=== PATIENT | female | born 1945 | race Caucasian/White ===

== ENCOUNTER 2018-01-20 03:34 | Emergency (ER) | payer MEDICARE ==
[~2018-01-20] VITALS: Ht 167.6 cm; Wt 68.0 kg
[2018-01-20] MEDS ORDERED: etomidate 2mg/ml inj. IV ONE (04:05)
[2018-01-20] MEDS ORDERED: fentaNYL/PF 50MCG/1 ML 2ML syringe IV ONE (04:05)
[2018-01-20] MEDS ORDERED: heparin 10,000 units/1 ML INJ IV ONE (04:05)
[2018-01-20] MEDS ORDERED: ondansetron/PF 4mg/2ml inj IV ONE (04:05)
[2018-01-20 04:07] LABS: BASOPHILS % (AUTO) 0.5 % (0-1); EOSINOPHILS # (AUTO) 0.3 X10'3 (0-0.9); EOSINOPHILS % (AUTO) 6.4 % (0-6); HEMATOCRIT 35.5 % (35.0-45.0); HEMOGLOBIN 11.8 g/dl (12.0-16.0); LYMPHOCYTES # (AUTO) 1.2 X10'3 (1.1-4.8); LYMPHOCYTES % (AUTO) 21.9 % (21-51); MEAN CORPUSCULAR HEMOGLOBIN 27.3 PG (27.0-31.0); MEAN CORPUSCULAR HGB CONC 33.1 % (33.0-36.5); MEAN CORPUSCULAR VOLUME 82.3 FL (78-98); MEAN PLATELET VOLUME 8.3 FL (7.4-10.4); MONOCYTES # (AUTO) 0.5 X10'3 (0-0.9); MONOCYTES % (AUTO) 10.1 % (2-12); NEUTROPHILS # (AUTO) 3.3 X10'3 (1.8-7.7); NEUTROPHILS % (AUTO) 61.1 % (42-75); PLATELET COUNT 194 X10'3 (140-440); RED BLOOD COUNT 4.31 X10'6 (4.20-5.60); RED CELL DISTRIBUTION WIDTH 15.4 % (11.5-14.5); WHITE BLOOD COUNT 5.3 X10'3 (4.5-11.0)
[2018-01-20] MEDS ORDERED: fentaNYL/PF 50MCG/1 ML 2ML syringe ONE (04:16)
[2018-01-20] MEDS ORDERED: APIX5TAB3 PO (04:21)
[2018-01-20] MEDS ORDERED: SOTA80TA PO (04:21)
[2018-01-20 04:24] LABS: ALANINE AMINOTRANSFERASE 25 U/L (12-78); ALBUMIN 3.2 G/DL (3.4-5.0); ALBUMIN/GLOBULIN RATIO 0.8 (1.1-1.5); ALKALINE PHOSPHATASE 54 IU/L (46-116); ANION GAP 11 (8-16); ASPARTATE AMINO TRANSFERASE 19 U/L (10-37); BILIRUBIN,TOTAL 0.4 MG/DL (0.1-1.0); BLOOD UREA NITROGEN 25 MG/DL (7-18); BUN/CREATININE RATIO 21.4 (6.6-38.0); CALCIUM 8.3 MG/DL (8.5-10.1); CHLORIDE 106 MMOL/L (99-107); CREATININE 1.17 MG/DL (0.40-0.90); GLUCOSE 169 MG/DL (70-104); POTASSIUM 3.5 MMOL/L (3.5-5.1); SODIUM 140 MMOL/L (135-145); TOTAL PROTEIN 7.1 G/DL (6.4-8.2); eGFR 45 ML/MIN
[2018-01-20 04:28] LABS: D-DIMER 0.22 MG/L FEU (0-0.50)
[2018-01-20 05:18] VITALS: BP 166/98
== END 2018-01-20 05:37 | disposition home or self-care (01) ==
LOC: ER 03:34
DX: I48.91 Unspecified atrial fibrillation (principal); I10 Essential (primary) hypertension; I25.10 Atherosclerotic heart disease of native coronary artery without angina pectoris; E11.65 Type 2 diabetes mellitus with hyperglycemia; I25.2 Old myocardial infarction; Z98.61 Coronary angioplasty status
CPT/HCPCS: 36415; 71045; 80053; 84439; 84443; 84484; 85025; 85379; 92960; 93005; 96374; 96375; 99291; J1644; J2405; J3010; J3490; A4620

== ENCOUNTER 2018-05-27 19:26 | Emergency (ER) | payer MEDICARE ==
[~2018-05-27] VITALS: Ht 167.6 cm; Wt 70.0 kg
[2018-05-27 19:57] LABS: BASOPHILS % (AUTO) 0.9 % (0-1); EOSINOPHILS # (AUTO) 0.2 X10'3 (0-0.9); EOSINOPHILS % (AUTO) 3.4 % (0-6); HEMATOCRIT 35.5 % (35.0-45.0); HEMOGLOBIN 11.6 g/dl (12.0-16.0); LYMPHOCYTES # (AUTO) 0.9 X10'3 (1.1-4.8); LYMPHOCYTES % (AUTO) 19.1 % (21-51); MEAN CORPUSCULAR HEMOGLOBIN 28.3 PG (27.0-31.0); MEAN CORPUSCULAR HGB CONC 32.9 % (33.0-36.5); MONOCYTES # (AUTO) 0.5 X10'3 (0-0.9); MONOCYTES % (AUTO) 10.9 % (2-12); NEUTROPHILS # (AUTO) 3.2 X10'3 (1.8-7.7); NEUTROPHILS % (AUTO) 65.7 % (42-75); PLATELET COUNT 185 X10'3 (140-440); RED BLOOD COUNT 4.12 X10'6 (4.20-5.60); RED CELL DISTRIBUTION WIDTH 14.7 % (11.5-14.5); WHITE BLOOD COUNT 4.9 X10'3 (4.5-11.0)
[2018-05-27 20:12] LABS: ALANINE AMINOTRANSFERASE 25 U/L (12-78); ALBUMIN 3.3 G/DL (3.4-5.0); ALBUMIN/GLOBULIN RATIO 0.9 (1.1-1.5); ALKALINE PHOSPHATASE 59 IU/L (46-116); ANION GAP 11 (8-16); ASPARTATE AMINO TRANSFERASE 18 U/L (10-37); BILIRUBIN,TOTAL 0.3 MG/DL (0.1-1.0); BLOOD UREA NITROGEN 27 MG/DL (7-18); CALCIUM 8.1 MG/DL (8.5-10.1); CHLORIDE 105 MMOL/L (99-107); CREATININE 1.42 MG/DL (0.40-0.90); GLUCOSE 154 MG/DL (70-104); POTASSIUM 3.8 MMOL/L (3.5-5.1); SODIUM 142 MMOL/L (135-145); TOTAL CARBON DIOXIDE 26.5 MMOL/L (24-32); eGFR 36 ML/MIN
[2018-05-27 20:21] LABS: MAGNESIUM 1.9 MG/DL (1.5-2.4)
[2018-05-27 20:33] LABS: D-DIMER 0.21 MG/L FEU (0-0.50); INR 2.1 INR; PROTHROMBIN TIME 20.1 SECONDS (9.0-12.0)
[2018-05-27 21:28] VITALS: BP 143/69
== END 2018-05-27 21:25 | disposition home or self-care (01) ==
LOC: ER 19:27
DX: R07.89 Other chest pain (principal); R10.13 Epigastric pain; M25.511 Pain in right shoulder; R10.10 Upper abdominal pain, unspecified; I48.91 Unspecified atrial fibrillation; I25.10 Atherosclerotic heart disease of native coronary artery without angina pectoris; I10 Essential (primary) hypertension; I25.2 Old myocardial infarction; E11.9 Type 2 diabetes mellitus without complications; Z86.718 Personal history of other venous thrombosis and embolism; Z95.5 Presence of coronary angioplasty implant and graft; Z98.890 Other specified postprocedural states
CPT/HCPCS: 36415; 71045; 80053; 83735; 83880; 84484; 85025; 85379; 85610; 93005; 99284

== ENCOUNTER 2023-02-28 12:58 | Day surgery (SDC) | payer MEDICARE, OTHER ==
[2023-02-26 16:10] LABS: BASOPHILS # (AUTO) 0.1 X10'3 (0-0.2); BASOPHILS % (AUTO) 1.1 % (0-1); EOSINOPHILS # (AUTO) 0.2 X10'3 (0-0.9); EOSINOPHILS % (AUTO) 2.4 % (0-6); LYMPHOCYTES # (AUTO) 1.2 X10'3 (1.1-4.8); LYMPHOCYTES % (AUTO) 17.7 % (21-51); MEAN CORPUSCULAR HEMOGLOBIN 29.2 PG (27.0-31.0); MEAN CORPUSCULAR HGB CONC 32.8 g/dL (33.0-36.5); MEAN CORPUSCULAR VOLUME 88.9 FL (78-98); MEAN PLATELET VOLUME 8.6 FL (7.4-10.4); MONOCYTES # (AUTO) 0.7 X10'3 (0-0.9); MONOCYTES % (AUTO) 10.4 % (2-12); NEUTROPHILS # (AUTO) 4.7 X10'3 (1.8-7.7); NEUTROPHILS % (AUTO) 68.4 % (42-75); PRE OP HEMATOCRIT 39.2 % (35.0-45.0); PRE OP HEMOGLOBIN 12.9 g/dL (12.0-16.0); PRE OP PLATELET COUNT 188 X10'3 (140-440); PRE OP WHITE BLOOD COUNT 6.9 10'3 (4.8-10.8); RED BLOOD COUNT 4.41 X10'6 (4.20-5.60); RED CELL DISTRIBUTION WIDTH 14.6 % (11.5-14.5)
[2023-02-26 16:38] LABS: ALBUMIN 3.6 G/DL (3.4-5.0); ALBUMIN/GLOBULIN RATIO 0.9 (1.1-1.5); ALKALINE PHOSPHATASE 52 IU/L (46-116); BLOOD UREA NITROGEN 36 MG/DL (7-18); BUN/CREATININE RATIO 22.8 (10.0-20.0); CALCIUM 9.1 MG/DL (8.5-10.1); CHLORIDE 105 MMOL/L (99-107); CREATININE 1.58 MG/DL (0.40-0.90); PRE OP ALT 25 U/L (30-65); PRE OP ANION GAP 8 (8-16); PRE OP AST 26 U/L (10-37); PRE OP BILIRUB, TOTAL 0.7 MG/DL (0.0-1.0); PRE OP POTASSIUM 3.7 MMOL/L (3.4-5.1); PRE OP SODIUM 141 MMOL/L (135-145); TOTAL CARBON DIOXIDE 28.2 MMOL/L (24-32); TOTAL PROTEIN 7.7 G/DL (6.4-8.2); eGFR 32 ML/MIN
[2023-02-26 16:40] LABS: PRE OP GLUCOSE 157 MG/DL (70-104)
[2023-02-28] VITALS (10 sets, daily range): BP systolic 145–159; BP diastolic 63–85; PULSE 70–85; RESP 11–15; TEMP 98.7; O2SAT 97–100
[~2023-02-28] VITALS: Ht 170.2 cm; Wt 64.0 kg
[~2023-02-28 12:58] MED LIST: AMLO2.5T2 PO; DAPA10TA PO; DOCUMENT DATE & TIME OF BETA-BLOCKER PO ONE; LIDOcaine 4% (40 mg/ml) topical solution 50ml MM ONE; LISI2.5T14 PO; METO100T14 PO; PANT40TA54 PO; ROSU40TA22 PO; SITA50TA PO; WARF-65 PO; epiNEPHrine 1 mg/ml inj IR PRN; famotidine 20mg tablet PO ONE; ringers solution, lacted 1,000 ML IV SCH
[2023-02-28] MEDS ORDERED: metoprolol tartrate 50mg tablet PO ONE (14:20)
[2023-02-28] MEDS ORDERED: acetaminophen 1,000mg/100ml IV 100 ML IV PRN (15:25)
[2023-02-28] MEDS ORDERED: HYDROmorphone/PF 0.2 MG/ML SYRINGE IV PRN ×2 (15:25)
[2023-02-28] MEDS ORDERED: ondansetron/PF 4mg/2ml inj IV PRN (15:25)
[2023-02-28] MEDS ORDERED: ringers solution, lacted 1,000 ML IV SCH (15:25)
[2023-02-28] MEDS ORDERED: morphine 2 MG/ML inj. syringe IV PRN (15:25)
[2023-02-28] MEDS ORDERED: morphine 4 MG/ML inj SYRINge IV PRN (15:25)
[2023-02-28] MEDS ORDERED: hydrALAZINE 20mg/ml inj. IV PRN (15:25)
[2023-02-28] MEDS ORDERED: labetalol 20mg/4ml (5mg/ml) syringe IV PRN (15:25)
[2023-02-28] MEDS ORDERED: meperidine/PF 25mg/ml syringe IV PRN (15:25)
[2023-02-28] MEDS ORDERED: proCHLORperazine 10 MG/2 ml inj IV PRN (15:25)
[2023-02-28] MEDS ORDERED: midazolam 1 mg/ML 2ml injection ONE (16:50)
[2023-02-28] MEDS ORDERED: fentaNYL/PF 50MCG/1 ML 2ML syringe ONE (16:50)
[2023-02-28] MEDS ORDERED: LIDOCAINE 4% (40MG/ML) topical solution 50ml **BRONCH ONLY ONE (16:59)
[2023-02-28] MEDS ORDERED: epiNEPHrine 1 MG/ML 1 ml ampule **BRONCH ONLY ONE (16:59)
[2023-02-28] MEDS ORDERED: sevoflurane 250ml liquid IH ONE (17:02)
[2023-02-28] MEDS ORDERED: LIDOcaine 2% (20mg/ml) 5ml vial ONE (17:27)
[2023-02-28] MEDS ORDERED: propofol inj 20 ML IV ONE (17:27)
[2023-02-28] MEDS ORDERED: ondansetron/PF 4mg/2ml inj ONE (17:28)
[2023-02-28] MEDS ORDERED: dexamethasone sod phosphate 4mg/ml inj. ONE (17:28)
[2023-02-28] MEDS ORDERED: rocuronium 10mg/ml inj IV ONE (17:28)
[2023-02-28] MEDS ORDERED: phenylephrine 10mg/ml inj. -priapism dosing ONE (18:02)
[2023-02-28] MEDS ORDERED: neostigmine methylsulfate 1 MG/ML 10ml vial ONE (18:03)
[2023-02-28] MEDS ORDERED: glycopyrrolate 0.2mg/ml inj ONE (18:03)
--- NOTE | 2023-02-28 18:20 | NUR ---
Received from OR via [facility] TO RR 8, accompanied by Anesthesiologist DR MURILLO and report given by Anesthesiolgist. PT PRESENTS WITH 20G RIGHT FOREARM, LR RUNNING AT 100MLS/HR, SPO2 98% 6L MASK, PT PAIN 0/10, VSS. Addendum: 02/28/23 at 1833 by Carolyne Chambers RN, RN Amended: Links added.
--- NOTE | 2023-02-28 19:30 | NUR ---
PT HAS MET D/C CRITERIA. 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 ALL QUESTIONS, COMMENTS, AND CONCERNS WERE ANSWERED AT THIS TIME. PT WAS ABLE TO GET DRESSED WITH ASSISTANCE AND AMBULATED TO W/C WITH STANDBY ASSIST. PT WAS WHEELED OUT TO PRIVATE VEHICLE AND TRANSFERRED INTO VEHICLE WITHOUT INCIDENT. PATIENT D/C HOME WITH ALL BELONGINGS. Addendum: 02/28/23 at 1935 by Carolyne Chambers RN, RN Amended: Links added.
== END 2023-02-28 19:30 | disposition home or self-care (01) ==
LOC: PAS 12:58
PROVIDERS: ATTEND Internal Medicine Critical Care Medicine
DX: R22.2 Localized swelling, mass and lump, trunk (principal); I10 Essential (primary) hypertension; E11.9 Type 2 diabetes mellitus without complications; I25.10 Atherosclerotic heart disease of native coronary artery without angina pectoris; E78.00 Pure hypercholesterolemia, unspecified; I48.91 Unspecified atrial fibrillation; K21.9 Gastro-esophageal reflux disease without esophagitis; F41.9 Anxiety disorder, unspecified; I25.2 Old myocardial infarction; Z86.718 Personal history of other venous thrombosis and embolism; Z87.891 Personal history of nicotine dependence; Z79.01 Long term (current) use of anticoagulants; Z79.2 Long term (current) use of antibiotics; Z79.899 Other long term (current) drug therapy; Z90.49 Acquired absence of other specified parts of digestive tract
CPT/HCPCS: 31623; 31624; 31628; 31629; 31653; 36415; 71045; 71046; 71250; 80053; 82948; 85025; 87070; 94760; J1100; J2250; J2370; J2405; J2704; J2710; J3010; J3490; J7120; Z7506; Z7508; Z7512; 31622; 31625; 31627; 31652; 31654; A4618; J0171